=== PATIENT | male | born 1990 | race Caucasian/White ===

== ENCOUNTER 2017-06-06 07:56 | Inpatient (IN) | payer OTHER ==
[~2017-06-06] VITALS: Ht 175.3 cm; Wt 106.0 kg
[2017-06-06] VITALS (27 sets, daily range): BP systolic 90–138; BP diastolic 51–88; PULSE 80–113; RESP 16–29; Ht 175.3 cm; Wt 106.0 kg
[2017-06-06] MEDS ORDERED: ONDANSETRON 4 MG INJ IV STA ×2 (08:11→10:03)
[2017-06-06] MEDS ORDERED: morphine 4 MG/ML VIAL IV STA ×2 (08:11→10:03)
[2017-06-06] MEDS ORDERED: SOD CHLORIDE 0.9% 1,000 ML IV STA (08:11)
--- NOTE | 2017-06-06 08:18 | ERD ---
ER Documentation Chief Complaint Date/Time DATE: 06/06/17 TIME: 08:14 Chief Complaint mid abdominal pain with nausea started this morning HPI 27-year-old otherwise healthy male, brought in by EMS, presents to the emergency department for new onset abdominal pain since this morning. Patient states he woke up with jim-radicular sharp, 9 out of 10, constant, nonradiating pain which gradually worsened and is worse with movement. Patient states he was at work and felt lightheaded and had to sit down from the pain. His coworkers called emergency medical services to come bring him to the hospital. Patient notes some nausea and a recent cold but denies any associated fever, chills, vomiting, diarrhea, bloody stool, headache. He denies any drug or alcohol use. He denies any prior abdominal surgeries or medical problems. He states he has never experienced this type of abdominal pain in the past. ROS All systems reviewed and are negative except as per history of present illness. PMhx/Soc Medical and Surgical Hx: pt denies Medical Hx, pt denies Surgical Hx Hx Alcohol Use: No Hx Substance Use: No Hx Tobacco Use: No Smoking Status: Never smoker Physical Exam Vitals Vital Signs Date Time Temp Pulse Resp B/P Pulse Ox O2 Delivery O2 Flow Rate FiO2 06/06/17 08:07 97.8 88 18 137/86 98 Physical Exam Const: Well-developed, well-nourished, in moderate distress Head: Atraumatic Eyes: Normal Conjunctiva ENT: Normal External Ears, Nose and Mouth. Neck: Full range of motion..~ No meningismus. Resp: Clear to auscultation bilaterally Cardio: Regular rate and rhythm, no murmurs Abd: Soft, tenderness to deep palpation of the area in particular region of the abdomen, non distended. Normal bowel sounds Skin: No petechiae or rashes Back: No midline or flank tenderness Ext: No cyanosis, or edema Neur: Awake and alert Psych: Normal Mood and Affect Result Diagram: 06/06/17 0827 06/06/17 0827 Results 24 hrs Laboratory Tests Test 06/06/17 08:25 06/06/17 08:27 Urine Color YELLOW Urine Clarity CLEAR Urine pH 6.0 Urine Specific [place] 1.027 Urine Ketones TRACEmg/dL Urine Nitrite NEGATIVEmg/dL Urine Bilirubin NEGATIVEmg/dL Urine Urobilinogen NEGATIVEmg/dL Urine Leukocyte Esterase NEGATIVELeu/ul Urine Hemoglobin NEGATIVEmg/dL Urine Glucose NEGATIVEmg/dL Urine Total Protein NEGATIVEmg/dl White Blood Count 13.910^3/ul Red Blood Count 5.0410^6/ul Hemoglobin 15.6g/dl Hematocrit 45.7% Mean Corpuscular Volume 90.7fl Mean Corpuscular Hemoglobin 31.0pg Mean Corpuscular Hemoglobin Concent 34.1g/dl Red Cell Distribution Width 11.9% Platelet Count 50707^3/UL Mean Platelet Volume 10.3fl Neutrophils % 84.4% Lymphocytes % 10.8% Monocytes % 3.5% Eosinophils % 0.7% Basophils % 0.2% Nucleated Red Blood Cells % 0.0/100WBC Neutrophils # (Manual) 11.710^3/ul Lymphocytes # 1.510^3/ul Monocytes # 0.510^3/ul Eosinophils # 0.110^3/ul Basophils # 0.010^3/ul Nucleated Red Blood Cells # 0.010^3/ul Prothrombin Time 12.1Sec Prothrombin Time Ratio 0.9 INR International Normalized Ratio 0.90 Activated Partial Thromboplast Time 27.5Sec Sodium Level 143mmol/L Potassium Level 4.0mmol/L Chloride Level 99mmol/L Carbon Dioxide Level 29mmol/L Anion Gap 19 Blood Urea Nitrogen 14mg/dl Creatinine 0.86mg/dl Glucose Level 106mg/dl Calcium Level 9.4mg/dl Total Bilirubin 0.6mg/dl Direct Bilirubin 0.00mg/dl Indirect Bilirubin 0.6mg/dl Aspartate Amino Transf (AST/SGOT) 43IU/L Alanine Aminotransferase (ALT/SGPT) 81IU/L Alkaline Phosphatase 105IU/L Total Protein 8.0g/dl Albumin 4.6g/dl Globulin 3.40g/dl Albumin/Globulin Ratio 1.35 Lipase 29U/L Current Medications Medications (Trade) Dose Ordered Sig/Nuria Route PRN Reason Start Time Stop Time Status Last Admin Dose Admin Sodium Chloride (NS) 1,000 ml @ 1,000 mls/hr Q1H STAT IV 06/06/17 08:11 06/06/17 09:10 DC 06/06/17 08:23 Morphine Sulfate (morphine) 4 mg ONCE STAT IV 06/06/17 08:11 06/06/17 08:13 DC 06/06/17 08:23 Ondansetron HCl (Zofran Inj) 4 mg ONCE STAT IV 06/06/17 08:11 06/06/17 08:13 DC 06/06/17 08:23 IV Flush 10 ml 10 ml STK-MED ONCE .ROUTE 06/06/17 09:27 06/06/17 09:28 DC 06/06/17 09:51 Sodium Chloride (NS) 100 ml @ ud STK-MED ONCE .ROUTE 06/06/17 09:27 06/06/17 09:28 DC 06/06/17 09:53 Iohexol 150 ml 150 ml STK-MED ONCE .ROUTE 06/06/17 09:27 06/06/17 09:28 DC 06/06/17 09:52 Piperacillin Sod/ Tazobactam Sod 100 ml @ 200 mls/hr ONCE ONCE IVPB 06/06/17 10:00 06/06/17 10:29 DC 06/06/17 10:13 Sodium Chloride (NS) 1,000 ml @ 1,000 mls/hr Q1H ONCE IV 06/06/17 10:30 06/06/17 11:29 06/06/17 10:11 Morphine Sulfate (morphine) 4 mg ONCE STAT IV 06/06/17 10:03 06/06/17 10:05 DC 06/06/17 10:10 Ondansetron HCl (Zofran Inj) 4 mg ONCE STAT IV 06/06/17 10:03 06/06/17 10:05 DC 06/06/17 10:10 Procedures/MDM PROCEDURE: CT Abdomen and Pelvis with contrast. CLINICAL INDICATION: Abdominal pain TECHNIQUE: CT scan of the abdomen and pelvis with contrast was performed utilizing axial tomographic images from the domes the diaphragm to the symphysis pubis. The patient was scanned post uncomplicated intravenous administration of 100 cc of Omnipaque-300. Coronal and sagittal reformatted images were obtained from the axial source images. Images were reviewed on a high-resolution PACS workstation. The total exam CTDI equals 22.72 mGy and the total exam DLP equals 1519.60 mGy-cm. One or more of the following dose reduction techniques were used: Automated exposure control, adjustment of the mA and / or kV according to patient size, or use of iterative reconstruction technique. COMPARISON: None. FINDINGS: The lung bases are clear . The liver is normal in size and contour. No focal intrahepatic masses are identified. There is no intra or extrahepatic biliary dilatation. The gallbladder is unremarkable by CT criteria. The spleen , pancreas, and adrenal glands are unremarkable. The kidneys are symmetric in size and demonstrate normal enhancement. No hydronephrosis or hydroureter is identified. No renal parenchymal mass is identified. The urinary bladder is unremarkable. The bowel demonstrates normal course and caliber. There is no evidence of bowel obstruction. No bowel wall thickening is identified. The appendix is distended and fluid-filled measuring 13 mm in diameter. There are multiple small appendicoliths within the appendiceal lumen. There is very mild periappendiceal fat stranding. No intraperitoneal free fluid, free air or abscess identified. No retroperitoneal, mesenteric, or inguinal adenopathy is identified. The abdominal aorta and major branching vessels are normal in caliber. The osseous structures are unremarkable. No significant subcutaneous soft tissue abnormality is identified. IMPRESSION: Fluid-filled distended appendix with multiple appendicoliths and very mild periappendiceal fat stranding. Findings are compatible with acute appendicitis. Peritoneal free fluid, free air or abscess is seen. RPTAT: HH .Candis Harper MD, MD Date Time Electronically viewed and signed by .Candis Harper MD, MD on 06/06/2017 09 :53 .G/ CC: JOSELITO OLVERA PA-C This is an otherwise healthy 27-year-old male who presents the emergency department for new onset. Particular pain which began suddenly this morning and has gradually worsened with associated nausea. Upon arrival patient in moderate distress, unable to move without causing pain. Patient was tender to palpation of the midline. In particular region of the abdomen. Otherwise physical exam unremarkable. Vital signs reviewed. Patient afebrile, non- tachycardic, normotensive and non-hypoxic upon arrival. Patient without prior episodes of abdominal pain, drug use, alcohol use, chronic medical conditions. CBC showed no evidence of systemic infection or severe anemia. CMP showed no evidence of electrolyte abnormalities, severe acidosis, alkalosis , renal failure, or liver disease. UA showed no evidence of acute infection or hematuria. CT of the abdomen and pelvis with contrast demonstrated Fluid-filled distended appendix with multiple appendicoliths and very mild periappendiceal fat stranding. Findings are compatible with acute appendicitis. Zosyn, fluids, and morphine were ordered. Patient's case discussed with Main ER physician, Dr. Tez Lipscomb Patient pending admit. Departure Diagnosis: Primary Impression: Abdominal pain Abdominal location: periumbilical Qualified Code: R10.33 - Periumbilical abdominal pain ASHLEY BARAJAS PA-C Jun 06, 2017 08:18
[2017-06-06 08:41] LABS: BASOPHILS % 0.2 % (0.0-2.0); EOSINOPHILS # 0.1 10^3/ul (0.0-0.5); EOSINOPHILS % 0.7 % (0.0-7.0); HEMATOCRIT 45.7 % (42.0-52.0); HEMOGLOBIN 15.6 g/dl (14.0-18.0); LYMPHOCYTES # 1.5 10^3/ul (0.8-2.9); LYMPHOCYTES % 10.8 % (15.0-51.0); MEAN CORPUSCULAR HGB CONC 34.1 g/dl (32.0-37.0); MEAN CORPUSCULAR VOLUME 90.7 fl (82.0-101.0); MEAN PLATELET VOLUME 10.3 fl (7.4-10.4); MONOCYTE # 0.5 10^3/ul (0.3-0.9); MONOCYTES % 3.5 % (0.0-11.0); NEUTROPHILS % 84.4 % (39.0-77.0); PLATELET COUNT 250 10^3/UL (140-415); RED BLOOD COUNT 5.04 10^6/ul (4.70-6.10); RED CELL DISTRIBUTION WIDTH 11.9 % (11.5-14.5); WHITE BLOOD COUNT 13.9 10^3/ul (4.8-10.8)
[2017-06-06 08:44] LABS: ADD UMIC NO; UR ASCORBIC ACID NEGATIVE (NEGATIVE); UR BILIRUBIN (Dip) NEGATIVE (NEGATIVE); UR BLOOD (Dip) NEGATIVE (NEGATIVE); UR CLARITY CLEAR (CLEAR); UR COLOR YELLOW (YELLOW); UR GLUCOSE (Dip) NEGATIVE (NEGATIVE); UR KETONES (Dip) TRACE mg/dL (NEGATIVE); UR LEUKOCYTE ESTERASE (Dip) NEGATIVE Leu/ul (NEGATIVE); UR NITRITE (Dip) NEGATIVE (NEGATIVE); UR SPECIFIC GRAVITY (Dip) 1.027 (1.003-1.030); UR TOTAL PROTEIN (Dip) NEGATIVE (NEGATIVE); UR UROBILINOGEN (Dip) NEGATIVE (NEGATIVE)
[2017-06-06 09:17] LABS: ALBUMIN 4.6 g/dl (3.3-4.9); ALBUMIN/GLOBULIN RATIO 1.35; BILIRUBIN,INDIRECT 0.6 mg/dl (0-1.1); BILIRUBIN,TOTAL 0.6 mg/dl (0.2-1.3); CALCIUM 9.4 mg/dl (8.4-10.2); CREATININE 0.86 mg/dl (0.61-1.24)
[2017-06-06] MEDS ORDERED: SOD CHLORIDE 0.9% 100 ML ONE (09:27)
[2017-06-06] MEDS ORDERED: IOHEXOL 300MG/ML 150 ML BTL ONE (09:27)
--- NOTE | 2017-06-06 09:54 | RADRPT ---
PROCEDURE: CT Abdomen and Pelvis with contrast. CLINICAL INDICATION: Abdominal pain TECHNIQUE: CT scan of the abdomen and pelvis with contrast was performed utilizing axial tomograph ic images from the domes the diaphragm to the symphysis pubis. The patient was scanned post uncomp licated intravenous administration of 100 cc of Omnipaque-300. Coronal and sagittal reformatted howard ges were obtained from the axial source images. Images were reviewed on a high-resolution PACS works tation. The total exam CTDI equals 22.72 mGy and the total exam DLP equals 1519.60 mGy-cm. One or m ore of the following dose reduction techniques were used: Automated exposure control, adjustment of the mA and / or kV according to patient size, or use of iterative reconstruction technique. COMPARISON: None. FINDINGS: The lung bases are clear . The liver is normal in size and contour. No focal intrahepatic masses are identified. There is no intra or extrahepatic biliary dilatation. The gallbladder is unremark able by CT criteria. The spleen, pancreas, and adrenal glands are unremarkable. The kidneys are symmetric in size and demonstrate normal enhancement. No hydronephrosis or hydroure ter is identified. No renal parenchymal mass is identified. The urinary bladder is unremarkable. The bowel demonstrates normal course and caliber. There is no evidence of bowel obstruction. No katie wel wall thickening is identified. The appendix is distended and fluid-filled measuring 13 mm in di ameter. There are multiple small appendicoliths within the appendiceal lumen. There is very mild p eriappendiceal fat stranding. No intraperitoneal free fluid, free air or abscess identified. No ret roperitoneal, mesenteric, or inguinal adenopathy is identified. The abdominal aorta and major branching vessels are normal in caliber. The osseous structures are u nremarkable. No significant subcutaneous soft tissue abnormality is identified. IMPRESSION: Fluid-filled distended appendix with multiple appendicoliths and very mild periappendiceal fat stra nding. Findings are compatible with acute appendicitis. Peritoneal free fluid, free air or abscess is seen. RPTAT: .Candis Harper MD, Date Time Electronically viewed and signed by .Candis Harper MD, on 06/06/2017 09:53 .Natalia
[2017-06-06] MEDS ORDERED: PIPER-TAZO 3.375 GM IV (PMX) 100 ML IVPB ONE (10:00)
[2017-06-06] MEDS ORDERED: SOD CHLORIDE 0.9% 1,000 ML IV ONE (10:30)
[2017-06-06 10:43] LABS: INR 0.9; PROTIME 12.1 Sec (12.2-14.2); PT RATIO 0.9
[2017-06-06 10:44] LABS: PARTIAL THROMBOPLASTIN TIME 27.5 Sec (25.0-35.0)
[2017-06-06] MEDS ORDERED: ACETAMINOPHEN 325 MG TAB PO PRN (11:30)
[2017-06-06] MEDS ORDERED: ONDANSETRON 4 MG INJ IV PRN ×2 (11:30→14:30)
--- NOTE | 2017-06-06 11:51 | HPN ---
Date/Time of Note Date/Time of Note DATE: 06/06/17 TIME: 11:51 Interval H&P Admission Note Pt. seen H&P reviewed: No system changes Pt. seen H&P reviewed. No system changes (I attest that I have seen and examined the patient and reviewed the operation in detail, as well as its risks , benefits and alternatives of the operation). I attest that I have seen and examined the patient and reviewed in detail the operation, and its associated risks, benefits and alternative. I have answered all the patient's questions to the best of my ability and the patient wishes to proceed. Please refer to rest of electronic medical record for additional updates. YAHAIRA POWELL M.D. Jun 06, 2017 11:51
[2017-06-06] MEDS ORDERED: BUPIVACAINE 0.25%/EPI (SDV) 10 ML INJ ONE (11:58)
[2017-06-06] MEDS ORDERED: BUPIVACAINE 0.25% (MPF) 10 ML 10 ML VIAL ONE (12:01)
[2017-06-06] MEDS ORDERED: MIDAZOLAM 1 MG/ML 2 ML INJ ONE (12:39)
[2017-06-06] MEDS ORDERED: PHENYLephrine (100 MCG/ML) 5ML SYG ONE (13:03)
[2017-06-06] MEDS ORDERED: NEOSTIGMINE 3 MG/3 ML SYRINGE ONE (14:00)
[2017-06-06] MEDS ORDERED: ROCURONIUM 50 MG INJ ONE (14:00)
[2017-06-06] MEDS ORDERED: ONDANSETRON 4 MG INJ ONE (14:00)
[2017-06-06] MEDS ORDERED: GLYCOPYRROLATE 0.4 MG INJ ONE (14:00)
[2017-06-06] MEDS ORDERED: PROPOFOL 20 ML ONE (14:00)
[2017-06-06] MEDS ORDERED: LIDOCAINE 2% (SDV) 5 ML INJ ONE (14:00)
[2017-06-06] MEDS ORDERED: HYDROmorphONE 1 MG/ML SYG IV PRN ×3 (14:30→15:00)
[2017-06-06] MEDS ORDERED: NACL 0.9% 3 ML SYG IV SCH (14:30)
[2017-06-06] MEDS: D5W-0.45 NACL + KCL 20 MEQ 1,000 ML IV SCH ×2 (14:46→17:53)
--- NOTE | 2017-06-06 14:51 | CONS ---
Date/Time of Note Date/Time of Note DATE: 06/06/17 TIME: 12:51 Assessment/Plan Assessment/Plan Additional Assessment/Plan [facility] INPATIENT CONSULTATION NOTE DATE OF SERVICE: 06/06/2017 PLACE OF SERVICE: [facility], emergency department ASSESSMENT AND PLAN: A very-pleasant 27-year-old gentleman with only comorbidity of BMI 34.5 and attention deficit disorder, presenting with signs and symptoms consistent with acute appendicitis as seen by his elevated white blood cell count, history and physical and CT findings. I recommended laparoscopic, possible open appendectomy and consented the patient for this operation. Patient and his mother had all their questions answered to the best of my ability and they appear to understand and agree with the plans. With above assessment, I've recommended the followin. To the operating room for above Thank you very much for having me involved in the care of this very pleasant patient and wonderful family. If you have any questions, please feel free to contact me at [phone]. Nature of presenting problem: Moderate severity Please note that, given the multiple number of diagnoses or management options, the moderate amount and/or complexity of data needed to be reviewed, and moderate risk of complications and/or morbidity or mortality, this qualifies as moderate complexity type of decision-making. Disclaimer: Inadvertent spelling and grammatical errors are likely due to EHR/ dictation software use and do not reflect on the quality of delivered patient care. Also, please note that the electronic time recorded on this node does not necessarily reflect the actual time of the visit. Updated clinical summary: A very-pleasant 27-year-old gentleman with only comorbidity of BMI 34.5 and attention deficit disorder, presenting with signs and symptoms consistent with acute appendicitis as seen by his elevated white blood cell count, history and physical and CT findings. Comorbidities: 1. BMI 34.5 2. Attention deficit disorder, on Adderall 3. Major depressive disorder 4. Nasal polyp surgery as a child CONSULTATION REQUESTED BY: Leora Estrella HISTORY OF PRESENT ILLNESS: The patient is a very pleasant 27-year-old gentleman with only comorbidity of BMI 34.5 and attention deficit disorder, presenting with signs and symptoms consistent with acute appendicitis as seen by his elevated white blood cell count, history and physical and CT findings. Pain started 2-3 days ago. He was associated with some nausea and minimal vomiting. No issues with diarrhea or blood in the stool or urine. No constipation. Patient had previous episode of similar attack a year ago which abated by itself (patient did not seek medical attention at that time). Pain was described as 4-6 out of 10, sharp in nature, located in the right lower quadrant and without radiation. No major alleviating or exacerbating factors. No other major complaints during my visit with him. ALLERGIES: NO KNOWN DRUG ALLERGIES MEDICATIONS Documented in the electronic records and reviewed by me. Please see the electronic records for details, as well as details for inpatient medications which were also reviewed by me. SOCIAL HISTORY: The patient lives with family. Works at [employer];-ETOH;- [employer] FAMILY HISTORY: There are no significant medical, surgical or oncologic issues in the family as reported by the patient or reflected in the chart. REVIEW OF SYSTEMS: Other than mentioned above, there were no other pertinent positives or pertinent negatives in an otherwise complete 14 point review of systems. PHYSICAL EXAMINATION GENERAL: The patient appears to be a very pleasant young gentleman of descent lying in bed, appearing stated age, and otherwise in no acute distress. BMI: 34.5 VITAL SIGNS: AVSS (please also see auto important data if available as well as the electronic records) HEENT: Normocephalic and atraumatic. Extraocular muscles and hearing are grossly intact bilaterally and symmetrically. Sclerae are nonicteric. Oral cavity is clear; oral mucosa appear to be pink and moist. Dentition: fair. NECK: Supple. There is no lymphadenopathy or JVD. There is no submental, submandibular or supraclavicular lymphadenopathy. CHEST: Rises symmetrically with each breath; patient is breathing comfortably. There are no audible wheezes, rales or rhonchi on the gross exam. HEART: Pulse is regular and palpable on the right wrist. Capillary refill is normal. Carotid pulses are palpable bilaterally and symmetrically in the neck. EXTREMITIES: Lower extremities contain no pitting edema around the ankles bilaterally and symmetrically. ABDOMEN: Abdomen is soft, mild to moderately tender in the right lower quadrant and nondistended. No evidence of ascites, organomegaly, caput medusae , engorged subcutaneous veins, or other abnormalities. There are no peritoneal signs or guarding. SKIN: Appears to be pink and feels warm to touch. NEUROLOGIC: Awake, alert, and follows commands appropriately. LABORATORY DATA: See below IMAGING: See electronic chart. Please note that I've personally reviewed all pertinent available images and I agree in general with their overall reported findings. Consultation Date/Type/Reason Admit Date/Time Jun 06, 2017 at 11:08 Social History Smoking Status: Never smoker Exam/Review of Systems Vital Signs Vitals Vital Signs Date Time Temp Pulse Resp B/P Pulse Ox O2 Delivery O2 Flow Rate FiO2 06/06/17 14:25 98.0 06/06/17 11:07 82 18 145/82 98 Room Air Results Result Diagram: 06/06/17 0827 06/06/17 0827 Results 24 hrs Laboratory Tests Test 06/06/17 08:25 06/06/17 08:27 Urine Color YELLOW Urine Clarity CLEAR Urine pH 6.0 Urine Specific [place] 1.027 Urine Ketones TRACE A Urine Nitrite NEGATIVE Urine Bilirubin NEGATIVE Urine Urobilinogen NEGATIVE Urine Leukocyte Esterase NEGATIVE Urine Hemoglobin NEGATIVE Urine Glucose NEGATIVE Urine Total Protein NEGATIVE White Blood Count 13.9 H Red Blood Count 5.04 Hemoglobin 15.6 Hematocrit 45.7 Mean Corpuscular Volume 90.7 Mean Corpuscular Hemoglobin 31.0 Mean Corpuscular Hemoglobin Concent 34.1 Red Cell Distribution Width 11.9 Platelet Count 250 Mean Platelet Volume 10.3 Neutrophils % 84.4 H Lymphocytes % 10.8 L Monocytes % 3.5 Eosinophils % 0.7 Basophils % 0.2 Nucleated Red Blood Cells % 0.0 Neutrophils # (Manual) 11.7 H Lymphocytes # 1.5 Monocytes # 0.5 Eosinophils # 0.1 Basophils # 0.0 Nucleated Red Blood Cells # 0.0 Prothrombin Time 12.1 L Prothrombin Time Ratio 0.9 INR International Normalized Ratio 0.90 Activated Partial Thromboplast Time 27.5 Sodium Level 143 Potassium Level 4.0 Chloride Level 99 Carbon Dioxide Level 29 Anion Gap 19 H Blood Urea Nitrogen 14 Creatinine 0.86 Glucose Level 106 Calcium Level 9.4 Total Bilirubin 0.6 Direct Bilirubin 0.00 Indirect Bilirubin 0.6 Aspartate Amino Transf (AST/SGOT) 43 Alanine Aminotransferase (ALT/SGPT) 81 H Alkaline Phosphatase 105 Total Protein 8.0 Albumin 4.6 Globulin 3.40 H Albumin/Globulin Ratio 1.35 Lipase 29 Medications Medications Current Medications Ondansetron HCl (Zofran Inj) 4 mg Q6H PRN IV NAUSEA AND/OR VOMITING; Start at 14:30; Status UNV Hydromorphone HCl (Dilaudid) 0.5 mg Q4H PRN IV SEVERE PAIN LEVEL 7-10; Start at 14:30; Status UNV Pantoprazole (Protonix Iv) 40 mg DAILY@06 IV ; Start 06/07/17 at 06:00; Status UNV YAHAIRA POWELL M.D. Jun 06, 2017 14:51
--- NOTE | 2017-06-06 14:53 | OPR ---
Date/Time of Note Date/Time of Note DATE: 06/06/17 TIME: 14:53 Operative Report Operative\Procedure Findings [facility] INPATIENT OPERATIVE NOTE PLACE OF SERVICE: [facility] DATE OF SURGERY: 06/06/2007 PREOPERATIVE DIAGNOSIS: 1. Acute appendicitis 2. BMI 34.5 POSTOPERATIVE DIAGNOSIS: 1. Acute appendicitis 2. BMI 34.5 OPERATION: 1. Laparoscopic appendectomy SURGEON: Yahaira Solorzano M.D. NURSING SECRETARY: None ANESTHESIA: General endotracheal tube anesthesia ANESTHESIOLOGIST: Raman Zazueta M.D. BRIEF SUMMARY: An otherwise uncomplicated laparoscopic appendectomy was performed with findings of non-perforated appendicitis. BRIEF HISTORY: The patient is a very pleasant 27-year-old gentleman with: BMI 34.5, admitted to the emergency department with signs and symptoms consistent with acute appendicitis as shown by his history and physical, elevated white blood cell count and CT findings. I met with the patient and family and counseled them regarding the possible options of treatment, and I strongly suggested a laparoscopic, possible open appendectomy. We reviewed the operation in detail as well as the risks, benefits, alternatives, and expected outcomes of this operation. After careful consideration of all the risks, benefits, and alternatives, the patient and family appeared to understand those risks and wished to proceed with surgery. For a detailed report of my consultation with patient and family, please refer to my separate consultation note. STATEMENT OF THE INFORMED CONSENT: The patient and family appeared to understand the risks of the operation to include, but not be limited to risk of postoperative pain and scar tissue, possible infection or bleeding requiring other interventions such as opening the wound, placement of drainage catheters, or other operative interventions; possible injury to surrounding to structures including bowel, bladder, bile duct, or blood vessels, or solid organs such as liver, kidney, or pancreas requiring other interventions or procedures; possible leakage of bowel from anastomotic sites or suture lines causing significant increase in morbidity and mortality and requiring multiple interventions including but not limited to, placement of drainage catheters, imaging studies, as well as operative interventions; possible other source of sepsis such as urinary tract infections or pneumonias, or other sources of potentially life threatening problems such as deep venous thrombus formation causing pulmonary embolism, myocardial arrhythmias and infarctions, and even . After careful consideration of all their options, the patient and family appeared to understand and wished to proceed with surgery. DESCRIPTION OF PROCEDURE: After obtaining informed consent, the patient was brought into the operating room and was placed in a normal supine position, where successful general endotracheal tube anesthesia was performed. Intravenous access was already in place and intravenous antimicrobials had been appropriately chosen and dosed prior to the operation. The patient's abdominal skin was prepped and draped from the nipple line down to the level of the upper thighs in the usual sterile fashion. We then called a surgical time-out where the patient's identification, date of , nature of the operation, allergies , presence of intravenous antimicrobials, presence of needed equipment, and any other concerns were reviewed and agreed upon by all members of the operating room team. We then started the operation by placing a 5 mm skin incision in the left lower quadrant and then introduced a 5 mm [employer] trocar into the peritoneal space, visualizing all the layers of the abdominal wall as we entered. Note that there was no indication of any injury to underlying structures with our entry into the peritoneal space. We insufflated the abdominal cavity to a maximum pressure of 15 mmHg and again inspected the area of insertion and ensured no obvious injury to underlying structures prior to inspecting the abdominal cavity and showing no obvious pus, bowel contents, or other abnormal features. We could not see the appendix very well. We, therefore, injected the future sites of our other trocars with 0.25% Marcaine with epinephrine and placed a 5 mm [employer] trocar into the midline suprapubic area, taking care not to injure the bladder. Note that the patient had not urinated prior to the operation, and bladder was somewhat full. We also placed a 12 mm trocar in the umbilical midline area, all under direct visualization. With our instruments in place, we had excellent visualization and access to the right lower quadrant. We then identified the appendix, which was inflamed but had a normal base coming out of the cecum. I then went ahead and used judicious amount of cautery as well as mostly blunt dissection to circumferentially isolate the base of the appendix and then transected this using one firing of the white load of the Endo -VITALIY stapler. We also repeated the firing on the mesentery of the appendix and completely disconnected the organ from the colon, delivered this out through the 12 mm trocar site inside of an EndoCatch bag without having to enlarge the fascial defect as well as without contaminating the wound. The specimen was sent to Pathology for further analysis. We then ensured adequate hemostasis and bile stasis, removed all our equipment including the pneumoperitoneum from the abdominal cavity prior to closing the infraumbilical fascia with 1 figure-of- eight 0 Vicryl suture on a UR-6 needle, washing the wounds with copious amounts of normal saline, injecting the initial insertion point of the trocar with 0.25 % Marcaine with epinephrine, and then closing the skin using interrupted 4-0 Monocryl sutures. Light dressing was then applied. At the end of the operation, both the sponge count and needle count were reportedly correct x2. The patient tolerated the procedure without any reported complications. ESTIMATED BLOOD LOSS: Less than 10 mL. BLOOD OR BLOOD PRODUCT TRANSFUSIONS: None to my knowledge. SPECIMENS: 1. Appendix COMPLICATIONS: None. DISPOSITION: Recovery area. Disclaimer: Inadvertent spelling and grammatical errors are likely due to EHR/ dictation software use and do not reflect on the quality of delivered patient care. YAHAIRA SOLORZANO M.D. Jun 06, 2017 14:53
[2017-06-06] MEDS ORDERED: BISACODYL 10 MG SUPP PR PRN (15:00)
[2017-06-06] MEDS ORDERED: DOCUSATE SODIUM 100 MG CAP PO PRN (15:00)
[2017-06-06] MEDS ORDERED: NA PHOSPHATE/BIPHOS 133 ML ENEMA PR PRN (15:00)
[2017-06-06] MEDS ORDERED: HYDROCODONE/APAP (5/325) TAB PO PRN ×2 (15:00)
[2017-06-06] MEDS ORDERED: D5W-0.45 NACL + KCL 20 MEQ 1,000 ML IV ONE (16:58)
--- NOTE | 2017-06-06 17:40 | HP ---
Date/Time of Note Date/Time of Note DATE: 06/06/17 TIME: 17:35 Assessment/Plan VTE Prophylaxis VTE Prophylaxis Intervention: SCD's Assessment/Plan Chief Complaint/Hosp Course Patient is a 27-year-old male with past medical history of depression and ADHD who presents to [facility] for abdominal pain and was found to have acute appendicitis Assessment and problem list Acute appendicitis Abdominal pain Major depression ADHD Leukocytosis Plan -Status post uncomplicated laparoscopic appendectomy per general surgery, will monitor overnight, diet started -We will monitor closely patient tolerating diet and doing well we will DC tomorrow morning -Continue home meds as able -Continue fluids -Continue pain control Problems: HPI/ROS Admit Date/Time Admit Date/Time Jun 06, 2017 at 11:08 Hx of Present Illness Patient is a 27-year-old male with a past medical history significant for ADHD and major depressive disorder who presents to [facility] with a chief complaint of abdominal pain that began in the morning, found on CT to have signs consistent with acute appendicitis and patient was taken urgently into the OR by general surgery. Patient is seen in the postop room status post uncomplicated laparoscopic appendectomy and is doing well. Patient states that there is only very mild pain from the surgical site and feels well. Patient has no other complaints at this time. PMH: ADHD and major depressive disorder PSH: Nasal polyp surgery as a child Social: Denies smoking, social alcohol, denies drugs Meds: Cymbalta 90 mg daily, Adderall 30 mg daily PMH/Family/Social Social History Smoking Status: Never smoker Exam/Review of Systems Vital Signs Vitals Vital Signs Date Time Temp Pulse Resp B/P Pulse Ox O2 Delivery O2 Flow Rate FiO2 06/06/17 15:17 84 20 100/61 97 Nasal Cannula 3.0 06/06/17 14:25 98.0 Exam Exam Physical exam General: Patient is laying in bed and answers questions appropriately Mentation: Patient is alert and oriented 4, Head: Normocephalic atraumatic Eyes: EOMI, pupils reactive to light Neck: Supple, nontender, midline Respiratory: Clear to auscultation bilaterally Cardiovascular: regular rate, no obvious murmurs Gastrointestinal: surgical site bandaged and CDI, bowel sounds heard. Neurological: Moves all extremities spontaneously Skin: No new skin lesions Labs Result Diagram: 06/06/1727 06/06/17 0827 Medications Medications Current Medications Ondansetron HCl (Zofran Inj) 4 mg Q6H PRN IV NAUSEA AND/OR VOMITING; Start at 14:30 Hydromorphone HCl (Dilaudid) 0.5 mg Q4H PRN IV SEVERE PAIN LEVEL 7-10; Start at 14:30 Pantoprazole 40 mg 40 mg DAILY@06 IV ; Start 06/07/17 at 06:00; Status UNV Potassium Chloride/Dextrose/ Sod Cl (D5-1/2ns + KCl 20 Meq) 1,000 ml @ 100 mls/ hr Q10H IV Last administered on 06/06/17t 14:46; Admin Dose 100 MLS/HR; Start 06/06/17 at 14:46 Acetaminophen/ Hydrocodone Bitart ([place] (5/325)) 1 tab Q4H PRN PO PAIN LEVEL 4 -7; Start 06/06/17 at 15:00 Acetaminophen/ Hydrocodone Bitart ([place] (5/325)) 2 tab Q4H PRN PO PAIN LEVEL 7 -10; Start 06/06/17 at 15:00 Hydromorphone HCl (Dilaudid) 0.5 mg Q2 PRN IV PAIN; Start 06/06/17 at 15:00 Hydromorphone HCl (Dilaudid) 1 mg Q2 PRN IV PAIN; Start 06/06/17 at 15:00 Docusate Sodium (Colace) 100 mg BID PRN PO CONSTIPATION; Start 06/06/17 at 15: 00 Bisacodyl (Dulcolax Supp) 10 mg BID PRN [place] CONSTIPATION; Start 06/06/17 at 15: 00; Status UNV Sodium Biphosphate/ Sodium Phosphate (Fleet Enema) 133 ml BID PRN [place] CONSTIPATION; Start 06/06/17 at 15:00; Status UNV Famotidine (Pepcid Iv) 20 mg DAILY IV ; Start 06/07/17 at 09:00; Status UNV Enoxaparin Sodium (Lovenox) 40 mg DAILY SC ; Start 06/07/17 at 09:00; Status UNV LINDA VANESSA Jun 06, 2017 17:40
[2017-06-07] MEDS: D5W-0.45 NACL + KCL 20 MEQ 1,000 ML IV SCH (02:32)
[2017-06-07 05:00] VITALS: BP 130/71; PULSE 99; RESP 20
[2017-06-07 05:39] LABS: BASOPHILS % 0.2 % (0.0-2.0); EOSINOPHILS % 0.3 % (0.0-7.0); HEMATOCRIT 39.3 % (42.0-52.0); HEMOGLOBIN 13.4 g/dl (14.0-18.0); LYMPHOCYTES # 1.4 10^3/ul (0.8-2.9); LYMPHOCYTES % 13.2 % (15.0-51.0); MEAN CORPUSCULAR HEMOGLOBIN 31.7 pg (29.0-33.0); MEAN CORPUSCULAR HGB CONC 34.1 g/dl (32.0-37.0); MEAN CORPUSCULAR VOLUME 92.9 fl (82.0-101.0); MEAN PLATELET VOLUME 10.5 fl (7.4-10.4); MONOCYTE # 0.7 10^3/ul (0.3-0.9); MONOCYTES % 6.5 % (0.0-11.0); NEUTROPHILS % 79.4 % (39.0-77.0); PLATELET COUNT 191 10^3/UL (140-415); RED BLOOD COUNT 4.23 10^6/ul (4.70-6.10); RED CELL DISTRIBUTION WIDTH 11.9 % (11.5-14.5); WHITE BLOOD COUNT 10.2 10^3/ul (4.8-10.8)
[2017-06-07] MEDS ORDERED: PANTOPRAZOLE (EC) 40 MG TAB PO SCH (06:00)
[2017-06-07 06:23] LABS: ALBUMIN 3.4 g/dl (3.3-4.9); ALBUMIN/GLOBULIN RATIO 1.36; BILIRUBIN,INDIRECT 0.6 mg/dl (0-1.1); BILIRUBIN,TOTAL 0.6 mg/dl (0.2-1.3); CALCIUM 8.4 mg/dl (8.4-10.2); CREATININE 0.87 mg/dl (0.61-1.24); POTASSIUM 4.1 mmol/L (3.5-5.1); TOTAL PROTEIN 5.9 g/dl (6.1-8.1)
[2017-06-07 07:38] VITALS: BP 108/62; RESP 20
[2017-06-07] MEDS ORDERED: FAMOTIDINE 20 MG TAB PO SCH (09:00)
[2017-06-07] MEDS ORDERED: ENOXAPARIN 40 MG/0.4 ML SYG SC SCH (09:00)
[2017-06-07] MEDS ORDERED: DULOXETINE 30 MG CAP DR PO SCH (09:00)
--- NOTE | 2017-06-07 10:40 | PDOCDIS ---
Discharge Instructions CONDITION Patient Condition: Stable HOME CARE INSTRUCTIONS: Special Diet: CLEAR ACTIVITY: Activity Restrictions: Slowly Increase Activity Bathing Restrictions: Shower FOLLOW UP/APPOINTMENTS Follow-up Plan Please follow up with Dr. Solorzano withing 1-2 weeks. LINDA VANESSA Jun 07, 2017 10:40
[2017-06-07] MEDS ORDERED: DULO30CA45 PO (10:42)
--- NOTE | 2017-06-07 10:45 | DS ---
Date/Time of Note Date/Time of Note DATE: 06/07/17 TIME: 10:44 Discharge Summary Admission/Discharge Info Admit Date/Time Jun 06, 2017 at 11:08 Discharge Date/Time Patient Condition: Good Hx of Present Illness Patient is a 27-year-old male with a past medical history significant for ADHD and major depressive disorder who presents to [facility] with a chief complaint of abdominal pain that began in the morning, found on CT to have signs consistent with acute appendicitis and patient was taken urgently into the OR by general surgery. Patient is seen in the postop room status post uncomplicated laparoscopic appendectomy and is doing well. Patient states that there is only very mild pain from the surgical site and feels well. Patient has no other complaints at this time. PMH: ADHD and major depressive disorder PSH: Nasal polyp surgery as a child Social: Denies smoking, social alcohol, denies drugs Meds: Cymbalta 90 mg daily, Adderall 30 mg daily Hospital Course Patient is a 27-year-old male with past medical history of depression and ADHD who presents to [facility] for abdominal pain and was found to have acute appendicitis Assessment and problem list Acute appendicitis Abdominal pain Major depression ADHD Leukocytosis Patient is a 27-year-old male with a past medical history of depression and ADHD who presented to [facility] for abdominal pain was found to have acute appendicitis. Patient was taken urgently into the operating theater by Dr. Solorzano an uneventful laparoscopic appendectomy was performed. Patient was monitored overnight and did well and is tolerating orals at this time. Patient will be discharged to follow-up with his primary care provider and general surgery within 1-2 weeks. Patient's questions have all been answered and he is agreeable to go home. Home Meds Active Scripts Duloxetine Hcl* (Cymbalta*) 30 Mg Capsule., 90 MG PO DAILY for 30 Days, #30 Prov:LINDA VANESSA 06/07/17 Primary Care Provider Care Physician No Primary Time spent on discharge: > 30 minutes Pending Labs Laboratory Tests Test 06/07/17 05:03 White Blood Count 10.210^3/ul (4.8-10.8) Red Blood Count 4.2310^6/ul (4.70-6.10) Hemoglobin 13.4g/dl (14.0-18.0) Hematocrit 39.3% (42.0-52.0) Mean Corpuscular Volume 92.9fl (82.0-101.0) Mean Corpuscular Hemoglobin 31.7pg (29.0-33.0) Mean Corpuscular Hemoglobin Concent 34.1g/dl (32.0-37.0) Red Cell Distribution Width 11.9% (11.5-14.5) Platelet Count 89147^3/UL (140-415) Mean Platelet Volume 10.5fl (7.4-10.4) Neutrophils % 79.4% (39.0-77.0) Lymphocytes % 13.2% (15.0-51.0) Monocytes % 6.5% (0.0-11.0) Eosinophils % 0.3% (0.0-7.0) Basophils % 0.2% (0.0-2.0) Nucleated Red Blood Cells % 0.0/100WBC (0.0-0.0) Neutrophils # (Manual) 8.110^3/ul (1.7-7.5) Lymphocytes # 1.410^3/ul (0.8-2.9) Monocytes # 0.710^3/ul (0.3-0.9) Eosinophils # 0.010^3/ul (0.0-0.5) Basophils # 0.010^3/ul (0.0-0.1) Nucleated Red Blood Cells # 0.010^3/ul (0.0-0.0) Sodium Level 142mmol/L (135-144) Potassium Level 4.1mmol/L (3.5-5.1) Chloride Level 100mmol/L (97-110) Carbon Dioxide Level 30mmol/L (21-31) Anion Gap 16 (8-16) Blood Urea Nitrogen 8mg/dl (7-20) Creatinine 0.87mg/dl (0.61-1.24) Glucose Level 96mg/dl (70-220) Calcium Level 8.4mg/dl (8.4-10.2) Total Bilirubin 0.6mg/dl (0.2-1.3) Direct Bilirubin 0.00mg/dl (0.00-0.20) Indirect Bilirubin 0.6mg/dl (0-1.1) Aspartate Amino Transf (AST/SGOT) 25IU/L (15-46) Alanine Aminotransferase (ALT/SGPT) 54IU/L (13-69) Alkaline Phosphatase 65IU/L (42-121) Total Protein 5.9g/dl (6.1-8.1) Albumin 3.4g/dl (3.3-4.9) Globulin 2.50g/dl (1.3-3.2) Albumin/Globulin Ratio 1.36 LINDA VANESSA Jun 07, 2017 10:45
--- NOTE | 2017-06-07 13:58 | PN ---
Date/Time of Note Date/Time of Note DATE: 06/07/17 TIME: 13:57 Assessment/Plan Lines/Catheters IV Catheter Type (from [facility]): Peripheral IV Chi in Place (from [facility]): No Assessment/Plan Assessment/Plan [facility] Progress Note Date of Service: 06/07/2017 Place of service: [facility] fourth floor Today's Assessment & Plan: Overall stable and doing well. No obvious indication of major intra-abdominal complications or surgical site infections. No indication for acute surgical intervention. Patient may discharge home from my standpoint. With above assessment, I've recommended the following for today: 1. Discharge home 2. Discharge instructions: "Please call [phone] if any of fever, nausea, vomiting, discharge from wound, wound redness, increase or sudden pain, blood in stool or vomit, or any other unusual signs or symptoms. Also, please call the same number in a few days to schedule an appointment for your follow up visit. Patient may remove dressings tomorrow. Showers OK starting tomorrow. No swimming , hot tub or bath for 2 weeks. No lifting more than 25 lbs for 8 weeks." Thank you again for your great care of this very pleasant patient and wonderful family. If there are any questions, please feel free to call me at [phone]. Nature of presenting problem: Moderate severity Please note that, given the limited number of diagnoses or management options, the limited amount and/or complexity of data needed to be reviewed, and moderate risk of complications and/or morbidity or mortality, this qualifies as low complexity type of decision-making. Disclaimer: Inadvertent spelling and grammatical errors are likely due to EHR/ dictation software use and do not reflect on the quality of delivered patient care. Also, please note that the electronic time recorded on this node does not necessarily reflect the actual time of the visit. Updated Clinical Summary: The patient is a very pleasant 27-year-old gentleman with: BMI 34.5, admitted to the emergency department with signs and symptoms consistent with acute appendicitis as shown by his history and physical, elevated white blood cell count and CT findings. S/p an otherwise uncomplicated laparoscopic appendectomy was performed with findings of non-perforated appendicitis. Comorbidities: 1. Acute appendicitis. S/p an otherwise uncomplicated laparoscopic appendectomy at [facility] on 06/06/17 with findings of non-perforated appendicitis. 2. BMI 34.5 Subjective: No major events or complaints; no abd pain and under control with medications; no n/v/d; no sob or cp; + flatus; - BM; + activity Objective: Vitals: See below I's & O's: See below Exam: GENERAL: On exam, the patient was ambulating and appeared to be comfortable and in no acute distress. ABDOMEN: Soft, nontender and nondistended. Incision dressings are clean, dry and intact without any evidence of erythema, edema, discharge, or hernia. There are no peritoneal signs or guarding. SKIN: Skin appears to be pink and feels warm to touch. NEUROLOGIC: Patient is awake, alert, and follows commands appropriately. Labs: See below Exam/Review of Systems Vital Signs Vitals Vital Signs Date Time Temp Pulse Resp B/P Pulse Ox O2 Delivery O2 Flow Rate FiO2 06/07/17 07:38 98.9 106 20 108/62 92 06/06/17 22:30 Nasal Cannula 2.0 Intake and Output 06/06/17 06/06/17 06/07/17 15:00 23:00 07:00 Intake Total 1000 ml 100 ml 1700 ml Output Total 5 ml 1200 ml Balance 995 ml 100 ml 500 ml Results Result Diagram: 06/07/17 0503 06/07/17 0503 YAHAIRA POWELL M.D. Jun 07, 2017 13:58
== END 2017-06-07 12:30 | disposition home or self-care (01) | DRG 343 ==
LOC: FTE 07:56 → REC 11:08 → FTE 12:38 → MS1 17:46
PROVIDERS: ADMIT Internal Medicine; ATTEND Internal Medicine
PROC: 0DTJ4ZZ Resection of Appendix, Percutaneous Endoscopic Approach (ICD-10-PCS; principal; 2017-06-06 12:00)
DX: K35.80 Unspecified acute appendicitis (principal); E66.01 Morbid (severe) obesity due to excess calories; Z68.34 Body mass index [BMI] 34.0-34.9, adult; F98.8 Other specified behavioral and emotional disorders with onset usually occurring in childhood and adolescence; F32.9 Major depressive disorder, single episode, unspecified
CPT/HCPCS: 36415; 74177; 80053; 81003; 83690; 85025; 85610; 85730; 96374; 96375; 96376; J1170; J1650; J2250; J2270; J2370; J2405; J2543; J2710; J3010; J3480; J7030; Q9967

== ENCOUNTER 2017-06-18 14:41 | Outpatient (CLI) | payer OTHER ==
[~2017-06-18] VITALS: Ht 172.7 cm; Wt 97.7 kg
[2017-06-18 14:32] VITALS: BP 133/77; PULSE 119; RESP 18; Ht 172.7 cm; Wt 97.7 kg
[~2017-06-18 14:41] MED LIST: DULO30CA45 PO
--- NOTE | 2017-06-18 15:27 | PN ---
Date/Time of Note Date/Time of Note DATE: 06/18/17 TIME: 15:23 Outpatient Progress Note Chief Complaint Abdominal pain/depression/ASHD HPI Abdominal pain/patient was recently admitted with acute abdominal pain, patient had acute appendicitis, patient had surgery, patient Copaxone, patient denies any fever chills or abdominal pain, Depression patient has a history of depression, on medication, no side effect, no suicidal idea, ASHD no chest pain no PND, history of ASHD, Review of Systems Const: No Fever, no chills, no Wt. loss, no Fatigue, normal appetite, no diaphoresis. Eyes: No pain, no discharge, no redness, no visual change, no foreign body. ENT: No pain, no bleeding, no congestion, no sore throat, no dysphagia, no discharge or rhinitis. Lymph: No adenopathy, no tender nodes, no lymphedema. Resp: No SOB, no cough, no sputum, no wheezing, no chest pain. CV: No chest pain, no palpitaions, no THACKER, no PND, no edema. GI: Normal appetite, no pain, no nausea, no vomiting, no diarrhea, no blood, no constipation. : No frequency, no urgency, no dysuria, no hematuria, no flank pain, no discharge, no bleeding. Musc: No bone/joint pain, no back pain, no neck pain, no knee pain, no restricted ROM. Skin: No rash, no skin lesions, no erythema, no laceration, no bruising, no pruritus. Neuro: No HERNANDEZ, no dizziness, no syncope, no seizure, no focal-weakness. Endo: No polyuria, no polydypsia, no dry-skin, no temp-intolerance. Psych: No hallucinations, no depression, no anxiety, no suicidal ideation. Ext: No edema, no pain, no ulcer, no weakness. Physical Exam Vital Signs Date Time Temp Pulse Resp B/P Pulse Ox O2 Delivery O2 Flow Rate FiO2 06/18/17 14:32 97.8 119 18 133/77 99 Room Air General Appearance: A 27 year-old male who appears well-developed, well- nourished, in no acute distress. HEENT: Head normocephalic, atraumatic. Pupils equal, round, reactive to light and accommodate. Sclerae are no jaundice. Nasal turbinates pink without erythema or nasal discharge. Mucous membranes pink and moist without lesions. Oropharynx clear without any exudate or discharge. NECK: Supple. Trachea midline, No thyromegaly, No cervical lymphadenopathy, No mass, No carotid bruits, No JVD, Carotid pulses 2+ bilaterally. PULMONARY: Clear to auscultaion bilaterally, No retractions, Chest expansion symmetric bilaterally, no rales, no ronchi, no dulness on percussion. CARDIAC: Normal SI and S2, Regular rate and rythm, no murmur, gallop, or rub. GASTROINTESTINAL: Abdomen is soft, non-tender, Non Rigid, No distention, Positive bowel sounds x4 quadrants, Liver normal. Laparoscopic appendectomy and port of entry clean, SKIN: Warm, dry, no rash, no bruise, no echmosis. EXTREMITIES: Bilateral lower extremities normal, no edema, no phlabitus, pulse palpable, no contracture. MUSCULOSKELETAL: Spine Normal, Non-tender, Normal range of motion, No swelling, no deformity, no clubbing, or cyanosis, the patient has no edema to bilateral lower extremities, dorsalis pedis pulses palpable bilaterally. NEUROLOGIC: The patient is awake, alert, oriented, responding to yes/no questions appropriately, moving all extremities, cranial nerve intact, normal strenght, normal power, normal coordination, normal gait. Allergies Coded Allergies: No Known Allergy (Unverified , 06/06/17) PMH Acute appendicitis/status post laparoscopic appendectomy, Depression History of ASHD, Social Hx No smoking no drinking, Family Hx Noncontributory Assessment/Plan Impression Abdominal pain/acute appendicitis/laparoscopic appendectomy Depression History of ASHD Plan Patient education done, patient has slightly elevated heart rate secondary to medication, Patient education done for depression, follow with the site, Patient encouraged to follow with the primary care physician, medical records suggest of ASHD, no information at present with me to confirm the diagnosis, Medications Home Meds Active Scripts Duloxetine Hcl* (Cymbalta*) 30 Mg Capsule., 90 MG PO DAILY for 30 Days, #30 Prov:LINDA VANESSA 06/07/17 CRISTINA BUITRAGO MD Jun 18, 2017 15:27
== END 2017-06-18 17:00 | disposition home or self-care (01) ==
LOC: DCC 14:41
PROVIDERS: ATTEND Internal Medicine
DX: R10.9 Unspecified abdominal pain (principal); F32.9 Major depressive disorder, single episode, unspecified; I25.10 Atherosclerotic heart disease of native coronary artery without angina pectoris

== ENCOUNTER → 2017-07-02 | Outpatient (CLI) | payer OTHER ==
[~2017-07-02] VITALS: Ht 172.7 cm; Wt 100.0 kg
[~2017-07-02] MED LIST changes: +AMPH10CA7 PO
[2017-07-02 11:44] VITALS: BP 138/86; PULSE 96; RESP 16; Ht 172.7 cm; Wt 100.0 kg
--- NOTE | 2017-07-02 12:43 | PN ---
Date/Time of Note Date/Time of Note DATE: 07/02/17 TIME: 12:40 Outpatient Progress Note Chief Complaint Depression/status post appendectomy HPI Patient/patient history of ADD and patient has been taking medication, no side effect, patient feeling better, Status post appendectomy/patient had acute abdominal pain, patient was seen in the hospital, patient had acute appendicitis, patient had appendectomy, doing better, no abdominal pain, no fever chill, Review of Systems Const: No Fever, no chills, no Wt. loss, no Fatigue, normal appetite, no diaphoresis. Eyes: No pain, no discharge, no redness, no visual change, no foreign body. ENT: No pain, no bleeding, no congestion, no sore throat, no dysphagia, no discharge or rhinitis. Lymph: No adenopathy, no tender nodes, no lymphedema. Resp: No SOB, no cough, no sputum, no wheezing, no chest pain. CV: No chest pain, no palpitaions, no THACKER, no PND, no edema. GI: Normal appetite, no pain, no nausea, no vomiting, no diarrhea, no blood, no constipation. : No frequency, no urgency, no dysuria, no hematuria, no flank pain, no discharge, no bleeding. Musc: No bone/joint pain, no back pain, no neck pain, no knee pain, no restricted ROM. Skin: No rash, no skin lesions, no erythema, no laceration, no bruising, no pruritus. Neuro: No HERNANDEZ, no dizziness, no syncope, no seizure, no focal-weakness. Endo: No polyuria, no polydypsia, no dry-skin, no temp-intolerance. Psych: No hallucinations, no depression, no anxiety, no suicidal ideation. Ext: No edema, no pain, no ulcer, no weakness. Physical Exam Vital Signs Date Time Temp Pulse Resp B/P Pulse Ox O2 Delivery O2 Flow Rate FiO2 07/02/17 11:44 98.6 96 16 138/86 97 Room Air General Appearance: A 27 year-old male who appears well-developed, well- nourished, in no acute distress. HEENT: Head normocephalic, atraumatic. Pupils equal, round, reactive to light and accommodate. Sclerae are no jaundice. Nasal turbinates pink without erythema or nasal discharge. Mucous membranes pink and moist without lesions. Oropharynx clear without any exudate or discharge. NECK: Supple. Trachea midline, No thyromegaly, No cervical lymphadenopathy, No mass, No carotid bruits, No JVD, Carotid pulses 2+ bilaterally. PULMONARY: Clear to auscultaion bilaterally, No retractions, Chest expansion symmetric bilaterally, no rales, no ronchi, no dulness on percussion. CARDIAC: Normal SI and S2, Regular rate and rythm, no murmur, gallop, or rub. GASTROINTESTINAL: Abdomen is soft, non-tender, Non Rigid, No distention, Positive bowel sounds x4 quadrants, Liver normal. Post laparoscopic appendectomy, SKIN: Warm, dry, no rash, no bruise, no echmosis. EXTREMITIES: Bilateral lower extremities normal, no edema, no phlabitus, pulse palpable, no contracture. MUSCULOSKELETAL: Spine Normal, Non-tender, Normal range of motion, No swelling, no deformity, no clubbing, or cyanosis, the patient has no edema to bilateral lower extremities, dorsalis pedis pulses palpable bilaterally. NEUROLOGIC: The patient is awake, alert, oriented, responding to yes/no questions appropriately, moving all extremities, cranial nerve intact, normal strenght, normal power, normal coordination, normal gait. Allergies Coded Allergies: No Known Allergy (Unverified , 06/06/17) PMH No change Social Hx No change Family Hx No change Assessment/Plan Impression Depression/status post laparoscopic appendectomy Plan Patient feeling better, no abdominal discomfort, patient is a taking medication , patient has appointment with surgery soon, Patient encouraged to follow with the primary care physician, I have discussed with the patient about his heart problem, patient states that he does not have any heart problem, but because of medication of depression patient is observed for that, Medications Home Meds Active Scripts Duloxetine Hcl* (Cymbalta*) 30 Mg Capsule., 90 MG PO DAILY for 30 Days, #30 Prov:LINDA VANESSA 06/07/17 CRISTINA BUITRAGO MD Jul 02, 2017 12:43
== END | disposition home or self-care (01) ==
LOC: DCC 11:08
PROVIDERS: ATTEND Internal Medicine
DX: F32.9 Major depressive disorder, single episode, unspecified (principal); F98.8 Other specified behavioral and emotional disorders with onset usually occurring in childhood and adolescence

== ENCOUNTER → 2017-07-04 | Outpatient (CLI) | payer OTHER ==
[~2017-07-04] VITALS: Ht 172.7 cm; Wt 99.1 kg
[2017-07-04 15:14] VITALS: BP 127/76; PULSE 94; RESP 18; Ht 172.7 cm; Wt 99.1 kg
--- NOTE | 2017-07-04 15:38 | PN ---
Date/Time of Note Date/Time of Note DATE: 07/04/17 TIME: 15:33 Assessment/Plan Assessment/Plan Assessment/Plan [facility] Progress Note Date of Service: 07/04/2017 Place of service: [facility] Today's Assessment & Plan: Overall stable and doing well post lap appy. No obvious indication of major intra-abdominal complications or surgical site infections. No indication for acute surgical intervention. With above assessment, I've recommended the following for today: 1. F/u with PCP 2. F/u with us prn Thank you again for your great care of this very pleasant patient and wonderful family. If there are any questions, please feel free to call me at [phone]. Nature of presenting problem: Moderate severity Please note that, given the limited number of diagnoses or management options, the limited amount and/or complexity of data needed to be reviewed, and moderate risk of complications and/or morbidity or mortality, this qualifies as low complexity type of decision-making. Disclaimer: Inadvertent spelling and grammatical errors are likely due to EHR/ dictation software use and do not reflect on the quality of delivered patient care. Also, please note that the electronic time recorded on this node does not necessarily reflect the actual time of the visit. Updated Clinical Summary: The patient is a very pleasant 27-year-old gentleman with: BMI 34.5, admitted to the emergency department with signs and symptoms consistent with acute appendicitis as shown by his history and physical, elevated white blood cell count and CT findings. S/p an otherwise uncomplicated laparoscopic appendectomy was performed with findings of non-perforated appendicitis. Comorbidities: 1. Acute appendicitis. S/p an otherwise uncomplicated laparoscopic appendectomy at [facility] on 06/06/17 with findings of non-perforated appendicitis. 2. BMI 34.5 Subjective: No major events or complaints; no abd pain and under control with medications; no n/v/d; no sob or cp; + flatus; + BM; + activity Objective: Vitals: See below Exam: GENERAL: On exam, the patient was sitting in a chair and appeared to be comfortable and in no acute distress. ABDOMEN: Soft, nontender and nondistended. Incisions are clean, dry and intact without any evidence of erythema, edema, discharge, or hernia. There are no peritoneal signs or guarding. SKIN: Skin appears to be pink and feels warm to touch. NEUROLOGIC: Patient is awake, alert, and follows commands appropriately. YAHAIRA POWELL M.D. Jul 04, 2017 15:38
== END | disposition home or self-care (01) ==
LOC: HPC 15:09
PROVIDERS: ATTEND Transplant Surgery
DX: K35.80 Unspecified acute appendicitis (principal)